=== PATIENT | male | born 1950 ===

== ENCOUNTER 2025-04-04 04:24 | Outpatient (CLI) | payer BC, SELFPAY ==
[2025-04-04 10:07] LABS: Abs Immature Grans 0.01 10^3/uL (0.0-0.06); HCT 40.8 % (40.0-50.0); HGB 13.7 g/dL (13.5-17.5); Immature Grans % 0.2 %; MCH 31.7 pg (27.0-33.0); MCHC 33.6 % (32.0-36.0); MCV 94 fL (80-95); MPV 8.3 fL (8.0-11.0); Platelet Count 181 10^3/uL (130-400); RBC 4.32 10^6/uL (4.36-5.78); RDW 12.1 % (11.8-14.1); RDW-SD 42.2 fL; WBC 4.87 10^3/uL (4.4-10.8)
[2025-04-04 10:28] LABS: ALT 20 U/L (16-63); AST 18 U/L (15-37); Albumin 3.7 g/dL (3.4-5.0); Alkaline Phosphatase 81 U/L (46-116); Anion Gap 4.9 mmol/L (3-11); BUN 10 mg/dL (7-18); Bilirubin, Total 0.6 mg/dL (0.2-1.0); CO2 31.1 mmol/L (21.0-32.0); Calcium 9.4 mg/dL (8.5-10.1); Chloride 104 mmol/L (98-107); Estimated GFR 91.15 (mL/min/1.73m2); Glucose 93 mg/dL (74-106); LDH 152 U/L (85-227); Potassium 4.4 mmol/L (3.5-5.1); Sodium 140 mmol/L (136-145); Total Protein 7.3 g/dL (6.4-8.2)
== END 2025-04-04 04:25 | disposition home or self-care (01) ==
PROVIDERS: Visit Provider Internal Medicine Hematology & Oncology
DX: C85.10 Unspecified B-cell lymphoma, unspecified site (principal)
CPT/HCPCS: 36415; 80053; 83615; 85025

== ENCOUNTER 2025-04-18 15:19 | Outpatient (CLI) | payer BC, SELFPAY ==
[2025-04-18 09:49] LABS: Abs Immature Grans 0.03 10^3/uL (0.0-0.06); HCT 41.7 % (40.0-50.0); HGB 13.7 g/dL (13.5-17.5); Immature Grans % 0.5 %; MCH 30.9 pg (27.0-33.0); MCHC 32.9 % (32.0-36.0); MCV 94 fL (80-95); MPV 8.2 fL (8.0-11.0); Platelet Count 259 10^3/uL (130-400); RBC 4.44 10^6/uL (4.36-5.78); RDW 12.3 % (11.8-14.1); RDW-SD 42.5 fL; WBC 6.16 10^3/uL (4.4-10.8)
[2025-04-18 10:12] LABS: ALT 25 U/L (16-63); AST 16 U/L (15-37); Albumin 3.6 g/dL (3.4-5.0); Alkaline Phosphatase 87 U/L (46-116); Anion Gap 5.0 mmol/L (3-11); BUN 11 mg/dL (7-18); Bilirubin, Total 0.5 mg/dL (0.2-1.0); CO2 31.0 mmol/L (21.0-32.0); Calcium 9.7 mg/dL (8.5-10.1); Chloride 104 mmol/L (98-107); Estimated GFR 87.96 (mL/min/1.73m2); Glucose 89 mg/dL (74-106); LDH 124 U/L (85-227); Potassium 4.4 mmol/L (3.5-5.1); Sodium 140 mmol/L (136-145); Total Protein 7.5 g/dL (6.4-8.2)
== END 2025-04-18 15:20 | disposition home or self-care (01) ==
LOC: LBO 15:19
PROVIDERS: Visit Provider Internal Medicine Hematology & Oncology
DX: C85.10 Unspecified B-cell lymphoma, unspecified site (principal)
CPT/HCPCS: 36415; 80053; 83615; 85025

== ENCOUNTER 2025-07-11 00:41 | Outpatient (CLI) | payer BC, SELFPAY ==
[2025-07-11 12:25] LABS: Abs Immature Grans 0.03 10^3/uL (0.0-0.06); HCT 40.7 % (40.0-50.0); HGB 13.6 g/dL (13.5-17.5); Immature Grans % 0.5 %; MCH 31.1 pg (27.0-33.0); MCHC 33.4 % (32.0-36.0); MCV 93 fL (80-95); MPV 8.9 fL (8.0-11.0); Platelet Count 221 10^3/uL (130-400); RBC 4.37 10^6/uL (4.36-5.78); RDW 12.6 % (11.8-14.1); RDW-SD 43.2 fL; WBC 5.85 10^3/uL (4.4-10.8)
[2025-07-11 12:42] LABS: Uric Acid 5.2 mg/dL (3.7-9.2)
[2025-07-11 12:44] LABS: LDH 138 U/L (120-246)
[2025-07-11 12:45] LABS: ALT 16 U/L (10-49); AST 21 U/L (<34); Albumin 4.5 g/dL (3.2-5.0); Alkaline Phosphatase 83 U/L (46-116); Anion Gap 7.3 mmol/L (3-11); BUN 13 mg/dL (9-23); Bilirubin, Total 0.7 mg/dL (0.2-1.2); CO2 30.7 mmol/L (20.0-31.0); Calcium 9.9 mg/dL (8.3-10.6); Chloride 104 mmol/L (98-107); Glucose 93 mg/dL (74-106); Potassium 4.3 mmol/L (3.5-5.1); Sodium 142 mmol/L (136-145); Total Protein 7.7 g/dL (5.7-8.2)
== END 2025-07-11 00:42 | disposition home or self-care (01) ==
LOC: LBO 00:41
PROVIDERS: Visit Provider Internal Medicine Hematology & Oncology
DX: C85.10 Unspecified B-cell lymphoma, unspecified site (principal)
CPT/HCPCS: 36415; 80053; 83615; 84550; 85025